=== PATIENT | female | born 1990 | race Two or more races ===

== ENCOUNTER 2018-10-10 08:58 | Outpatient (CLI) | payer BC, OTHER ==
[2018-10-10] MEDS ORDERED: IBUP-1221 PO (09:34)
[2018-10-10] MEDS ORDERED: LORA-439 PO (09:34)
== END 2018-10-10 23:59 | disposition home or self-care (01) ==
LOC: STAR 08:58
PROVIDERS: ATTEND Surgery
DX: Z02.9 Encounter for administrative examinations, unspecified (principal)

== ENCOUNTER 2018-10-19 06:59 | Day surgery (SDC) | payer BC, OTHER ==
[~2018-10-19] VITALS: Ht 152.4 cm; Wt 83.5 kg
[~2018-10-19 06:59] MED LIST: IBUP-1221 PO; LORA-439 PO
[2018-10-19] MEDS ORDERED: LACTATED RINGERS 1,000 ML IV SCH (07:59)
[2018-10-19 08:19] LABS: HCG UR SG 1.023 (1.003-1.030)
[2018-10-19] MEDS ORDERED: BUPIVACAINE/PF-EPI 0.5% 1:200K ONE (08:19)
[2018-10-19] MEDS ORDERED: APREPITANT 40 MG CAPSULE ONE (08:25)
[2018-10-19] MEDS ORDERED: MIDAZOLAM 1 MG/ML, 2ML ONE (08:34)
[2018-10-19] MEDS ORDERED: FENTANYL PF 250 MCG/5ML ONE (08:34)
[2018-10-19] MEDS ORDERED: KETAMINE 10 MG/ML, 20ML ONE (08:55)
[2018-10-19] MEDS ORDERED: PROPOFOL 10 MG/ML, 20ML ONE (09:39)
[2018-10-19] MEDS ORDERED: CEFOTETAN PMX 2GM/50ML 50 ML ONE (09:39)
[2018-10-19] MEDS ORDERED: ROCURONIUM 10MG/ML,5ML ONE (09:39)
[2018-10-19] MEDS ORDERED: SUGAMMADEX 200 MG/2 ML IVPush ONE (09:39)
[2018-10-19] MEDS ORDERED: LIDOCAINE-MPF 2% ,5ML ONE (09:39)
[2018-10-19] MEDS ORDERED: DEXAMETHASONE 4 MG/ML, 1ML ONE (09:39)
[2018-10-19] MEDS ORDERED: ONDANSETRON 2MG/ML, 2ML ONE (09:39)
[2018-10-19] MEDS ORDERED: MEPERIDINE/PF 25MG/0.5ML IVPush PRN (10:00)
[2018-10-19] MEDS ORDERED: ACETAMINOPHEN 325 MG TABLET PO PRN (10:00)
[2018-10-19] MEDS ORDERED: HYDROmorphone 2 MG/ML, 1ML IVPush PRN (10:00)
[2018-10-19] MEDS ORDERED: HALOPERIDOL 5 MG/ML IV PRN (10:00)
[2018-10-19] MEDS ORDERED: KETOROLAC 30 MG/1 ML ONE (10:19)
[2018-10-19] MEDS ORDERED: ACETAMINOPHEN 650 MG/20.3 ML UDC ONE (10:21)
[2018-10-19] MEDS ORDERED: OXYcodone 5 MG/5 ML ORAL.SOL UDC ONE ×2 (10:22→10:55)
[2018-10-19] MEDS: OXYcodone 5 MG/5 ML ORAL.SOL UDC PO PRN ×2 (10:24→10:56)
[2018-10-19] MEDS ORDERED: KETOROLAC 30 MG/1 ML IVPush ONE (10:30)
[2018-10-19] MEDS ORDERED: FENTANYL PF 100 MCG/2ML ONE ×2 (10:31→10:52)
[2018-10-19] MEDS: FENTANYL PF 100 MCG/2ML IV PRN ×4 (10:33→11:02)
== END 2018-10-19 12:50 | disposition home or self-care (01) ==
LOC: OUT 06:59
PROVIDERS: ATTEND Surgery
DX: K80.10 Calculus of gallbladder with chronic cholecystitis without obstruction (principal); K21.9 Gastro-esophageal reflux disease without esophagitis; E66.9 Obesity, unspecified; Z68.35 Body mass index [BMI] 35.0-35.9, adult; Z79.899 Other long term (current) drug therapy; Z83.3 Family history of diabetes mellitus; Z82.49 Family history of ischemic heart disease and other diseases of the circulatory system
CPT/HCPCS: 47562; 81025; 88304; J1100; J1885; J2250; J2405; J2704; J3010; J3490; J7120